=== PATIENT | male | born 1990 | race Caucasian/White ===

== ENCOUNTER 2021-12-17 11:07 | Emergency (ER) | payer OTHER, SELFPAY ==
[2021-12-17] VITALS (12 sets, daily range): BP systolic 136–179; BP diastolic 84–104; PULSE 96–114; RESP 9–20; TEMP 37.2; O2SAT 98–100
[2021-12-17 12:07] LABS: Basophils Absolute Auto 0.1 K/mm3 (0.0-0.1); Basophils Percent Auto 0.7 % (0.2-1.2); Eosinophils Absolute Auto 0.1 K/mm3 (0-0.3); Eosinophils Percent Auto 1.5 % (0-4.4); Hematocrit 44.8 % (42.0-52.0); Hemoglobin 15.7 g/dL (14.0-18.0); Immature Granulocyte Absolute 0.01 K/mm3 (0.00-0.031); Immature Granulocyte Percent A 0.1 % (0-0.5); Lymphocytes Absolute Auto 1.03 K/mm3 (0.9-3.2); Lymphocytes Percent Auto 14.5 % (18.3-44.2); Mean Corpuscular Hemoglobin 33.5 pg (26-34); Mean Corpuscular Volume 95.5 fl (80-100); Mean Platelet Volume 9.9 fl (7.4-10.4); Monocytes Absolute Auto 0.9 K/mm3 (0.1-0.6); Monocytes Percent Auto 13.1 % (2.6-8.5); Neutrophils Percent Auto 70.1 % (45.5-73.1); Platelet Count Result 213 k/mm3 (150-375); Red Blood Count 4.69 M/mm3 (4.6-6.20); Red Cell Distribution Width 12.1 % (11.5-14.5); White Blood Count 7.1 K/mm3 (4.5-10.0)
[2021-12-17 12:16] LABS: Alanine Aminotransferase 98 U/L (6-50); Albumin Level 5.3 g/dL (3.5-5.1); Alkaline Phosphatase 70 U/L (38-126); Anion Gap 14 mmol/L (8-16); Aspartate Amino Transferase 118 U/L (17-59); Bilirubin,Total 0.5 mg/dL (0.2-1.3); Blood Urea Nitrogen 5 mg/dL (9-20); Calcium 9.5 mg/dL (8.4-10.2); Carbon Dioxide 25 mmol/L (22-30); Chloride 102 mmol/L (98-107); Estimated CRCL calculation 119 ml/min; Estimated Glomerular Filt Rate > 60; Glucose 95 mg/dL (65-110); INR 0.9; Potassium 3.7 mmol/L (3.4-5.0); Prothrombin Time 11.8 Seconds (11.1-14.7); Sodium 141 mmol/L (137-145)
[2021-12-17 12:17] LABS: Partial Thromboplastin Time 32.2 SECONDS (22.3-36.8)
[2021-12-17] MEDS: SODIUM CHLORIDE 0.9% IV 1,000 ML 999 ML IV CONT (13:03)
--- NOTE | 2021-12-17 14:16 | ED.GENADULT ---
HPI - General Adult General Chief complaint: GI Bleed Stated complaint: blood in stool Time Seen by Provider: 12/17/21 11:35 History of Present Illness HPI narrative: Patient is a 31-year-old male who presents ER with concerns for GI bleed. Reports last night he had a bowel movement that had bright red blood in it. This morning he had a second bowel movement with increased blood in it. He could feel it dripping after bowel movement today. No lightheadedness or dizziness. No nausea or vomiting. Has not had rectal bleeding previously. He is not on any blood thinners. He has not been straining or having constipation. Related Data Allergies Allergy/AdvReac Type Severity Reaction Status Date / Time No Known Allergies Allergy Verified 12/17/21 11:08 Review of Systems Review of Systems: All systems reviewed & are unremarkable except as noted in HPI and below Constitutional: Constitutional: Denies chills and Denies fever(s) ENT: Denies nasal congestion and Denies sore throat Cardiovascular: Cardiovascular: Denies chest pain and Denies rapid heart rate Gastrointestinal: Gastrointestinal: Denies abdominal pain, Denies diarrhea, Denies nausea and Denies vomiting Comments: Blood in stool PMFSH Past Medical History Medical History (Updated 12/17/21 @ 14:26 by Lex Ortiz MD) Healthy adult male Surgical History Surgical History (Updated 12/17/21 @ 14:20 by Lex Ortiz MD) No history of previous surgery Social History Social History (Updated 12/17/21 @ 14:20 by Lex Ortiz MD) Social History: 10 beers a day. Alcohol intake: current Exam Narrative: GENERAL: Well-appearing, well-nourished, and in no acute distress. HEAD: Normocephalic, atraumatic. EYES: PERRL and EOMI. CHEST: Clear to auscultation. No respiratory distress. HEART: Tachycardic and regular. Normal peripheral pulses. ABDOMEN: Soft, nontender, nondistended. Normal-appearing rectum free of external hemorrhoids. Visualized bowel movement that showed a pea-sized maeve of maroon blood without other liquid blood. EXTREMITIES: Normal range of motion. No edema. SKIN: Warm, dry, no rash. NEURO: Alert and oriented x3. PSYCH: Normal mood and affect. Course Course Emergency Course: Patient resting comfortably. Hemoglobin stable. No hypertension. No dizziness. Will recommend follow-up with GI also recommend PPI. Patient could also have diverticular bleed and recommend he use a stool softener so he does not have to strain. Vital Signs Vital signs: Vital Signs Temperature 98.9 F 12/17/21 11:12 Pulse Rate 111 H 12/17/21 11:12 Respiratory Rate 16 12/17/21 11:12 Blood Pressure 179/99 H 12/17/21 11:12 Pulse Oximetry 100 12/17/21 11:12 Temperature 98.9 F 12/17/21 11:12 Pulse Rate 114 H 12/17/21 13:03 Respiratory Rate 16 12/17/21 13:03 Blood Pressure 151/101 H 12/17/21 13:03 Pulse Oximetry 100 12/17/21 13:03 Medical Decision Making Vital Signs Vital Signs: Vital Signs Temperature 98.9 F 12/17/21 11:12 Pulse Rate 111 H 12/17/21 11:12 Respiratory Rate 16 12/17/21 11:12 Blood Pressure 179/99 H 12/17/21 11:12 Pulse Oximetry 100 12/17/21 11:12 Temperature 98.9 F 12/17/21 11:12 Pulse Rate 114 H 12/17/21 13:03 Respiratory Rate 16 12/17/21 13:03 Blood Pressure 151/101 H 12/17/21 13:03 Pulse Oximetry 100 12/17/21 13:03 Lab Data Result diagrams: 12/17/21 11:54 12/17/21 11:54 Labs: Lab Results 12/17/21 12/17/21 12/17/21 Range/Units 11:54 11:54 11:54 WBC 7.1 (4.5-10.0) K/mm3 RBC 4.69 (4.6-6.20) M/mm3 Hgb 15.7 (14.0-18.0) g/dL Hct 44.8 (42.0-52.0) % MCV 95.5 (80-100) fl MCH 33.5 (26-34) pg MCHC 35.0 (32-36) g/dl RDW 12.1 (11.5-14.5) % Plt Count 213 (150-375) k/mm3 MPV 9.9 (7.4-10.4) fl Immature Gran % (Auto) 0.1 (0-0.5) % Neut % (Auto) 70.1 (45.5-73.1) %
== END 2021-12-17 14:58 | disposition home or self-care (01) ==
PROVIDERS: Emergency Provider Emergency Medicine
DX: K62.5 Hemorrhage of anus and rectum (principal)
CPT/HCPCS: 36415; 80053; 85025; 85610; 85730; 86850; 86900; 86901; 96360; 99283; J7030

== ENCOUNTER 2022-07-07 09:36 | Emergency (ER) | payer OTHER, SELFPAY ==
--- NOTE | 2022-07-07 09:42 | ED.LOWEXIN ---
HPI - Extremity Injury (Lower) General Chief Complaint: Extremity Injury, Lower Stated Complaint: rt foot injury Time Seen by Provider: 07/07/22 09:42 Source: patient Mode of arrival: ambulatory Limitations: no limitations History of Present Illness HPI Narrative: Eric is a 31-year-old male patient presenting to the clinic today with complaints of right foot injury/pain. He reports he was stomping on a cardboard box yesterday and developed pain to the arch of his foot and to the heel. He reports that pain is sharp. Rates pain currently 3/10. Is having the most pain when walking/bearing weight. Related Data Home Medications Medication Instructions Recorded Confirmed amlodipine 2.5 mg tablet 2.5 mg PO DAILY 07/07/22 07/07/22 Allergies Allergy/AdvReac Type Severity Reaction Status Date / Time No Known Allergies Allergy Verified 07/07/22 10:00 Review of Systems Review of Systems: Pertinent positives per HPI. Patient denies any fever, chills, rash, headache, visual changes, dizziness, cough, runny nose, sore throat, shortness of breath, chest pain, palpitations, nausea, vomiting, diarrhea, constipation, abdominal pain, or any urinary issues. [facility] Past Medical History Medical History Elevated BP without diagnosis of hypertension Healthy adult male Surgical History Surgical History No history of previous surgery Social History Social History Social History: 10 beers a day. Smoking status: Unknown if ever smoked Alcohol intake: current Comments At the time of my signature, I reviewed and agree with the nursing past medical, surgical, social, and family history. There is no relevant family history pertinent to the patient complaint. Exam Narrative: General: Well-developed, well nourished, in no apparent distress Head: Normocephalic, atraumatic. Cardio: Regular rate and rhythm, s1 and s2 normal, no murmur appreciated. Resp: Clear to auscultation bilaterally, no rhonchi, rales, wheezing or rubs. Musculoskeletal: No deformity, mildly tender to palpation over the right arch of the foot and the proximal heel, grossly normal range of motion, muscle strength strong and equal, peripheral pulse strong, no edema, no cyanosis, normal gait and station Course Course Emergency Course: Portions of this record may have been created with voice recognition software. Level of Care: Express Care Visit Vital Signs Vital signs: Vital signs reviewed MDM - Extremity Injury (Lower) MDM Narrative Medical decision making narrative: At the time of visit patient is resting comfortably on the exam table. I suspect the patient may have a plantar fashion strain verses foot contusion. Will send in prescription for ibuprofen. Supportive measures were discussed with the patient he voiced understanding of discharge instructions and agrees to treatment plan. Differential Diagnosis Differential diagnosis: Likely other (Foot contusion, foot fracture, plantar fasciitis, tendon strain) Discharge Plan Discharge Clinical Impression: Contusion of foot Qualifiers: Encounter type: initial encounter Laterality: right Qualified Code(s): S90.31XA - Contusion of right foot, initial encounter Patient Disposition: Home, Self-Care Condition: Stable Instructions: Antibiotic Form, Foot Contusion (ED) Additional Instructions: Rest, ice, elevate, and wear poornima wrap as directed Tylenol/motrin for pain as discussed. Prescription for Motrin 800 mg tablets sent to the pharmacy Gradually bear weight No running or sports until healed. Follow up with your PCP if symptoms persist more than 1 week. Prescriptions: New ibuprofen 800 mg tablet 800 mg PO TID 10 Days Qty: 30 0RF No Action amlodipine 2.5 mg tablet 2.5 mg PO DAILY Fo
[2022-07-07 09:54] VITALS: BP 147/105; PULSE 116; RESP 16; TEMP 37.2; O2SAT 100
== END 2022-07-07 10:04 | disposition home or self-care (01) ==
PROVIDERS: Emergency Provider Nurse Practitioner Family; PCP Nurse Practitioner
DX: S90.31XA Contusion of right foot, initial encounter (principal); W22.8XXA Striking against or struck by other objects, initial encounter
CPT/HCPCS: 99213; G0463

== ENCOUNTER 2023-08-20 13:18 | Emergency (ER) | payer OTHER, SELFPAY ==
[2023-08-20 13:30] VITALS: BP 139/88; PULSE 100; RESP 20; TEMP 37.1; O2SAT 100
[2023-08-20] MEDS: TETANUS,DIPHTHERIA,AC PERTUSSIS ADULT (0.5 ML) BOOSTRIX IM (13:59)
--- NOTE | 2023-08-20 14:04 | ED.GENADULT ---
HPI - General Adult General Chief complaint: Wound/Laceration Stated complaint: right forearm lac Source: patient Mode of arrival: ambulatory Limitations: no limitations History of Present Illness HPI narrative: Patient presents for evaluation of an abrasion to the right forearm. He indicates he was helping a friend move a couch when a piece of metal in the door frame cut his right forearm. Date of last tetanus unknown. Reports mild pain without numerical rating or descriptive quality the affected area. No fever, chills, nausea, vomiting, purulence from the affected area. He is not diabetic. He states he simply came in today for a tetanus shot. Related Data Home Medications Medication Instructions Recorded Confirmed amlodipine 5 mg-benazepril 10 mg 1 cap PO DAILY 08/20/23 08/20/23 capsule Allergies Allergy/AdvReac Type Severity Reaction Status Date / Time No Known Allergies Allergy Verified 08/20/23 14:11 Review of Systems Review of Systems: CONSTITUTIONAL: Denies fever, chills, or sweats. EYES: Denies visual changes, redness, or discharge. ENT: Denies rhinorrhea, congestion, sore throat, or otalgia. CARDIOVASCULAR: Denies chest pain, palpitations, or edema. RESPIRATORY: Denies cough or dyspnea. GASTROINTESTINAL: Denies abdominal pain, nausea, vomiting, or diarrhea. GENITOURINARY: Denies dysuria or hematuria. SKIN: Reports abrasion to right forearm MUSCULOSKELETAL: Denies back pain, joint pain, or myalgia. NEUROLOGIC: Denies headache, numbness, dizziness, or weakness. PSYCHIATRIC: Denies anxiety or depression. [facility] Past Medical History Medical History Elevated BP without diagnosis of hypertension Healthy adult male Surgical History Surgical History No history of previous surgery Family History Family History Mother Family history non-contributory Social History Social History Social History: 10 beers a day. Smoking status: Unknown if ever smoked Alcohol intake: current Living arrangements: with family Gender identity (if verbalized by the patient): Male Exam Narrative: GENERAL: Well-appearing, well-nourished, and in no acute distress. HEAD: Normocephalic, atraumatic. EYES: PERRLA and EOMI. ENT: Nares clear, no rhinorrhea or epistaxis. Mucous membranes moist. Oropharynx without tonsillar hypertrophy exudate or other lesions. Bilateral TMs pearly michelle nonbulging NECK: Supple. No adenopathy or masses. No carotid bruits or JVD CHEST: Clear to auscultation. No respiratory distress. No wheezes rales or rhonchi HEART: Regular rate and rhythm. No murmur heard. Normal peripheral pulses. ABDOMEN: Soft, nontender, nondistended, normal active bowel sounds. EXTREMITIES: Normal range of motion. No edema. SKIN: There is an approximately 3.5 cm linear abrasion noted to the right forearm. Wound bed is red without any active bleeding. NEURO: No focal deficits. Alert and oriented x3. PSYCH: Normal mood and affect. Course Course Emergency Course: This is a 32-year-old male who presented for an abrasion with right forearm. Wound was cleansed and antibiotic ointment applied. Provided with tetanus. Advised on wound care measures. Follow up with primary provider. Go to the ER for worsening symptoms. Pt in agreement with plan of care. Level of Care: Express Care Visit Vital Signs Vital signs: Vital Signs Temperature 37.1 C 08/20/23 13:30 Pulse Rate 100 08/20/23 13:30 Respiratory Rate 20 08/20/23 13:30 Blood Pressure 139/88 08/20/23 13:30 Pulse Oximetry 100 08/20/23 13:30 Oxygen Delivery Room Air 08/20/23 13:30 Temperature 37.1 C 08/20/23 13:30 Pulse Rate 100 08/20/23 13:30 Respiratory Rate 20 08/20/23 1
== END 2023-08-20 14:20 | disposition home or self-care (01) ==
PROVIDERS: Emergency Provider Nurse Practitioner; PCP Nurse Practitioner
DX: S50.811A Abrasion of right forearm, initial encounter (principal); W26.8XXA Contact with other sharp object(s), not elsewhere classified, initial encounter; Z23 Encounter for immunization
CPT/HCPCS: 90471; 90715; 99212; G0463